=== PATIENT | male | born 1985 | race African-American/Black ===

== ENCOUNTER 2020-12-19 10:41 | Emergency (ER) | payer OTHER ==
[2020-12-19 10:51] VITALS: BP 150/84; PULSE 85; TEMP 98.5; BMI 31.6
[2020-12-19] MEDS ORDERED: IBUPROFEN 600 MG TABLET (FP) PO ONE ×2 (11:24→11:28)
== END 2020-12-19 11:30 | disposition home or self-care (01) ==
LOC: JERFT 10:41
DX: H60.11 Cellulitis of right external ear (principal)
CPT/HCPCS: 99283-25

== ENCOUNTER 2021-07-26 09:49 | Emergency (ER) | payer OTHER ==
[2021-07-26 10:31] VITALS: BP 130/82; PULSE 89; TEMP 98.1; BMI 24.4
[2021-07-26] MEDS ORDERED: MAG HYDROX/AL HYDROX/SIMETH -MYLANTA- ORAL SUSPENSION PO ONE (11:24)
[2021-07-26] MEDS ORDERED: ONDANSETRON *ODT* 4 MG TABLET SL ONE (11:24)
[2021-07-26] MEDS ORDERED: FAMOTIDINE 20 MG/50 ML IVPB 20 MG/50 ML MG IVPB ONE (11:24)
[2021-07-26] MEDS ORDERED: ACETAMINOPHEN 325 MG TABLET (FP) PO ONE (11:27)
[2021-07-26] MEDS ORDERED: FAMOTIDINE 20 MG TABLET PO ONE (11:33)
[2021-07-26] MEDS ORDERED: FAMOTIDINE 20 MG TABLET ONE (11:38)
[2021-07-26] MEDS ORDERED: ACETAMINOPHEN 325 MG TABLET (FP) ONE (11:38)
[2021-07-26] MEDS ORDERED: MAG HYDROX/AL HYDROX/SIMETH 30 ML UNIT-DOSE CUP ONE (11:38)
[2021-07-26] MEDS ORDERED: ONDANSETRON *ODT* 4 MG TABLET ONE (11:38)
== END 2021-07-26 12:54 | disposition home or self-care (01) ==
LOC: JER 09:49
PROC: 3E033NZ Introduction of Analgesics, Hypnotics, Sedatives into Peripheral Vein, Percutaneous Approach (ICD-10-PCS; principal; 2021-07-26)
DX: F10.99 Alcohol use, unspecified with unspecified alcohol-induced disorder (principal)
CPT/HCPCS: 93005; 93010; 99284-25; Q0162